=== PATIENT | male | born 1980 | race Caucasian/White ===

== ENCOUNTER 2018-07-03 12:43 | Emergency (ER) | payer MEDICAID ==
[~2018-07-03] VITALS: Ht 132.1 cm; Wt 40.8 kg
[2018-07-03 12:56] VITALS: BP_SYST 117
[2018-07-03] MEDS ORDERED: BACITRACIN 1 GM OINT TP ONE (13:28)
[2018-07-03 13:57] VITALS: BP_SYST 117
== END 2018-07-03 13:50 ==
LOC: SED 12:43
DX: S52.181A Other fracture of upper end of right radius, initial encounter for closed fracture (principal); E03.9 Hypothyroidism, unspecified; F17.200 Nicotine dependence, unspecified, uncomplicated; X58.XXXA Exposure to other specified factors, initial encounter; Y93.89 Activity, other specified; Y92.89 Other specified places as the place of occurrence of the external cause; Y99.8 Other external cause status
CPT/HCPCS: 73090; 99284